=== PATIENT | male | born 1970 | race African-American/Black ===

== ENCOUNTER 2016-05-16 11:46 | Emergency (ER) | payer OTHER ==
[~2016-05-16 11:46] MED LIST: ASAB PO; BLOOD PRESSURE MED; HYDROCHLOROT25 MG PO; LISINOPRIL40 MG PO; PT DENIES HOME MEDS; ZOCOR20 PO
[2016-05-16 12:39] LABS: BASOPHILS 1.3 %; BASOPHILS ABSOLUTE 0.06 10/3/uL (0.0-0.16); EOSINOPHILS 4.1 %; EOSINOPHILS ABSOLUTE 0.19 10/3/uL (0.0-0.53); ER CBC TAT 0 Hrs 03 Mins; HEMATOCRIT 37.4 % (40.0-51.0); HEMOGLOBIN 12.8 g/dL (13.6-17.8); LYMPHOCYTES 36.3 %; LYMPHOCYTES ABSOLUTE 1.69 10/3/uL (0.67-4.30); MANUAL DIFF NO %; MEAN CORPUS HGB CONC 34.2 g/dL (32.0-36.0); MEAN CORPUSCULAR HEMOGLOB 32.9 pg (26.0-34.0); MEAN CORPUSCULAR VOLUME 96.1 fL (80-100); MEAN PLATELET VOLUME 10.4 fL (9.2-13.0); MONOCYTES 7.3 %; MONOCYTES ABSOLUTE 0.34 10/3/uL (0.21-1.20); NEUTROPHILS ABSOLUTE 2.37 10/3/uL (2.02-8.40); PLATELET COUNT 291 10/3/uL (150-400); RED CELL COUNT 3.89 10/6/uL (4.7-6.1); WHITE BLOOD CELLS 4.7 10/3/uL (4.5-10.5)
[2016-05-16 12:46] LABS: INTERNATIONAL NORMAL RATI 1.1 UNITS (-); PROTIME (NOT ORD) 13.7 SEC (12.0-14.5)
[2016-05-16 12:47] LABS: PARTIAL THROMBO TIME 29.2 SEC (22.5-37.2)
[2016-05-16 12:58] LABS: BUN (BLOOD UREA NITROGEN) 17 MG/DL (6-23); CALCIUM, SERUM 8.2 MG/DL (8.5-10.4); CHEST PAIN PROFILE TAT 0 Hrs 22 Mins; CHLORIDE, SERUM 110 MMOL/L (96-112); CO2 (CARBON DIOXIDE) 26 MMOL/L (24-34); CREATININE 1.39 MG/DL (0.70-1.30); GFR AFRICAN AMERICAN 70 ML/MIN (>=60); GFR NON AFRICAN AMERICAN 60 ML/MIN (>=60); GLUCOSE, SERUM 96 MG/DL (60-99); SODIUM, SERUM 144 MMOL/L (135-148); TROPONIN I <0.02 NG/ML (<0.05)
[2016-05-16 12:59] LABS: POTASSIUM, SERUM 3.6 MMOL/L (3.5-5.3)
[2016-08-07] MEDS ORDERED: L20 PO (14:23)
[2016-08-07] MEDS ORDERED: HALF81 PO (14:23)
[2016-08-07] MEDS ORDERED: ZESTRIL40 MG PO (14:23)
[2016-08-07] MEDS ORDERED: TOPXL100 PO (14:23)
== END 2016-05-16 15:30 | disposition home or self-care (01) ==
LOC: ER 11:46
PROVIDERS: Nurse Practitioner
DX: M54.2 Cervicalgia (principal); M25.512 Pain in left shoulder; I10 Essential (primary) hypertension; I25.2 Old myocardial infarction; Z79.899 Other long term (current) drug therapy; Z79.82 Long term (current) use of aspirin
CPT/HCPCS: 71010; 72125; 80048; 83735; 84484; 85025; 85610; 85730; 96374; 99284; A9270-GY; J1170; J2405